=== PATIENT | male | born 1990 | race Caucasian/White ===

== ENCOUNTER → 2017-08-14 04:59 | Emergency (ER) | payer SELFPAY ==
[2017-08-14 05:10] VITALS: BP 163/91
[2017-08-14 05:54] LABS: Urine Bilirubin Negative (Negative); Urine Glucose Negative (Negative); Urine Nitrite Negative (Negative)
[2017-08-14 06:13] LABS: Hematocrit 43 % (42-52); Hemoglobin 14.5 g/dl (14.0-18.0); Mean Corpuscular HGB Conc 34 g/dl (31-36); Mean Corpuscular Hemoglobin 29 pg (27-31); Mean Corpuscular Volume 86 fL (80-94); Mean Platelet Volume 8 um3 (7.4-10.4); Red Cell Distribution Width 13 % (10.5-15); White Blood Count 6.8 10^3/ul (3.5-10.8)
[2017-08-14 06:27] LABS: Benzodiazepine Urine Screen None Detected (None Detect)
[2017-08-14 06:28] LABS: ALT 22 U/L (7-52); AST 16 U/L (13-39); Albumin 4.4 g/dL (3.2-5.2); Alkaline Phosphatase 63 U/L (34-104); Anion Gap 7 mmol/L (2-11); BUN/Creatinine Ratio 11.8 (8-20); Blood Urea Nitrogen 11 mg/dL (6-24); CO2 Carbon Dioxide 28 mmol/L (22-32); Calcium 9.9 mg/dL (8.6-10.3); Chloride 104 mmol/L (101-111); EGFR African American 124.4 (>60); EGFR Non-African American 96.7 (>60); Globulin 2.8 g/dL (2-4); Glucose 117 mg/dL (70-100); Potassium 3.6 mmol/L (3.5-5.0); Sodium 139 mmol/L (133-145); Total Protein 7.2 g/dL (6.4-8.9)
[2017-08-14 06:40] LABS: Acetaminophen < 15 mcg/mL; Alcohol < 10 mg/dL (<10); Salicylate < 2.50 mg/dL (<30)
--- NOTE | 2017-08-14 06:59 | ED ---
Collette Hernandez Thomas, scribed for Alexis Baptiste on 08/14/17 at 0539 . Psychiatric Complaint - HPI Summary HPI Summary: The pt is a 26 y/o M presenting to the ED c/o auditory hallucinations and SI for the last two weeks. He appears depressed. Pt additionally c/o insomnia and a sinus infection. Pt denies HI. He went to [facility] yesterday, where he was evaluated but was not admitted. He recently used marijuana. - History Of Current Complaint Chief Complaint: EDMentalHealth Time Seen by Provider: 08/14/17 05:15 Hx Obtained From: Patient Onset/Duration: Lasting Weeks - onset of problems two weeks ago, Still Present Timing: Intermittent Episode Lasting Character: Depressed Aggravating Factor(s): Other - Unknown Alleviating Factor(s): Other - Unknown Associated Signs And Symptoms: Positive: Hallucinating - auditory Has Suicidal: Reports: Thoughts Has Homicidal: Denies: Thoughts Ingestion History: Type/Name Of Drug - Marijuana - Allergies/Home Medications Allergies/Adverse Reactions: Allergies Allergy/AdvReac Type Severity Reaction Status Date / Time No Known Allergies Allergy Verified 08/14/17 05:10 PMH/Surg Hx/FS Hx/Imm Hx Previously Healthy: No Endocrine/Hematology History: Denies: Hx Diabetes Cardiovascular History: Denies: Hx Hypertension Opthamlomology History: Denies: Hx Eye Prosthesis EENT History: Denies: Hx Deafness - Surgical History Surgery Procedure, Year, and Place: None. Infectious Disease History: No Infectious Disease History: Denies: Traveled Outside the [place] in Last 30 Days - Family History Known Family History: Negative: Hypertension, Diabetes - Social History Alcohol Use: None Hx Substance Use: Yes Substance Use Type: Reports: Marijuana Hx Tobacco Use: Yes Smoking Status (MU): Former Smoker Review of Systems Positive: Other - Sinus infection Neurological: Other - Insomnia Psychological: Other - SI, auditory hallucinations; NEGATIVE: HI Positive: Depressed All Other Systems Reviewed And Are Negative: Yes Physical Exam - Summary Physical Exam Summary: Appearance: Well appearing, no pain distress. Skin: Warm, dry, reflects adequate perfusion. Head/face: Normal. Eyes: EOMI, JAMIE. ENT: Normal. Neck: Supple, nontender. Respiratory: CTA, breath sounds present. Cardiovascular: RRR, pulses symmetrical. Abdomen: Nontender, soft. Bowel: Present. Musculoskeletal: Normal, strength/ROM intact. Neuro: Normal, sensory motor intact, A&Ox3. PSYCHIATRIC: depressed affect Triage Information Reviewed: Yes Vital Signs On Initial Exam: Initial Vitals Temp Pulse Resp BP Pulse Ox 99.0 F 64 14 163/91 98 08/14/17 05:05 08/14/17 05:05 08/14/17 05:05 08/14/17 05:05 08/14/17 05:05 Vital Signs Reviewed: Yes Diagnostics - Vital Signs Vital Signs Temp Pulse Resp BP Pulse Ox 08/14/17 05:05 99.0 F 64 14 163/91 98 - Laboratory Result Diagrams: 08/14/17 05:57 08/14/17 05:57 Lab Statement: Any lab studies that have been ordered have been reviewed, and results considered in the medical decision making process. Course/Dx - Course Assessment/Plan: The patient is cleared for mental health evaluation. He will be signed out to the next ED physician pending mental health evaluation. - Differential Dx/Clinical Impression Provider Diagnosis: Acute psychosis Discharge - Discharge Plan Condition: Fair Disposition: OTHER Discharge Disposition Comment: Sign out pending MHE. Referrals: No Primary Care Phys,NOPCP [Primary Care Provider] - The documentation as recorded by the Collette kent Thomas accurately reflects the service I personally performed and the decisions made by Emile shannon Emmanuel.
== END ==
LOC: ED 04:59
DX: F23 Brief psychotic disorder (principal); R44.0 Auditory hallucinations; R45.851 Suicidal ideations; J32.9 Chronic sinusitis, unspecified; G47.00 Insomnia, unspecified; F12.90 Cannabis use, unspecified, uncomplicated; Z87.891 Personal history of nicotine dependence
CPT/HCPCS: 36415; 80053; 80307; 80320; 80329; 81003; 84443; 85025; 99283; G0480